=== PATIENT | male | born 1965 | race Two or more races ===

== ENCOUNTER 2018-11-08 14:18 | Day surgery (SDC) | payer OTHER ==
[2018-11-08] MEDS ORDERED: LIDOCAINE 1% 2 ML INJ ID PRN (14:36)
[2018-11-08] MEDS ORDERED: LR 1,000 ML IV ONE (14:36)
--- NOTE | 2018-11-08 15:42 | PDANEPAE ---
ANE History of Present Illness ERCP for common duct stone ANE Past Medical History - Cardiovascular History Hx Hypertension: No Hx Arrhythmias: No Hx Chest Pain: No Hx Coronary Artery / Peripheral Vascular Disease: No Hx CHF / Valvular Disease: No Hx Palpitations: No - Pulmonary History Hx COPD: No Hx Asthma/Reactive Airway Disease: No Hx Recent Upper Respiratory Infection: No Hx Oxygen in Use at Home: No Hx Sleep Apnea: No Sleep Apnea Screening Result - Last Documented: Negative Pulmonary History Comment: BRONCHITIS X1 IN PAST - Neurologic History Hx Cerebrovascular Accident: No Hx Seizures: No Hx Dementia: No Neurologic History Comment: MIGRAINES IN PAST - Endocrine History Hx Diabetes: Yes Endocrine History Comment: GRAVES DISEASE IN REMISSION X 5 YRS - Renal History Hx Renal Disorders: No - Liver History Hx Hepatic Disorders: No Hepatic History Comment: GALL BLADDER STONES - Neurological & Psychiatric Hx Hx Neurological and Psychiatric Disorders: No - Cancer History Hx Cancer: No - Congenital Disorder History Hx Congenital Disorders: No - GI History Hx Gastrointestinal Disorders: No Gastrointestinal History Comment: IBS - Other Health History Other Health History: NEG - Chronic Pain History Chronic Pain: Yes (BACK PAIN, SHOULDER R) - Surgical History Prior Surgeries: HERNIA REPAIR ANE Review of Systems Review of Systems: - Exercise capacity METS (RN): 6 METS ANE Patient History - Allergies Allergies/Adverse Reactions: No Known Allergies Allergy (Unverified 11/08/18 14:59) - Home Medications Home medications: home medication list seen and reviewed Home Medications: NK [No Known Home Meds] 11/05/18 [Last Taken Unknown] - NPO status NPO Since - Liquids (Date): 11/08/18 NPO Since - Liquids (Time): 06:00 (H2O) NPO Since - Solids (Date): 11/07/18 NPO Since - Solids (Time): 00:59 - Anes Hx Anes Hx: no prior problems - Smoking Hx Smoking Status: Never smoked - Alcohol Use Alcohol Use: None - Family Anes Hx Family Anes Hx: none Family Hx Anesthesia Complications: NEG ANE Labs/Vital Signs - Vital Signs Blood Pressure: 116/89 Heart Rate: 67 Respiratory Rate: 18 O2 Sat (%): 94 Height: 167.64 cm Weight: 69.4 kg ANE Physical Exam - Airway Neck exam: FROM Mallampati Score: Class 1 - Pulmonary Pulmonary: no respiratory distress - Cardiovascular Cardiovascular: regular rate and rhythym - ASA Status ASA Status: I ANE Anesthesia Plan Anesthesia Plan: general endotracheal anesthesia
[2018-11-08] MEDS ORDERED: fentaNYL 100 MCG/2 ML INJ ONE (16:03)
[2018-11-08] MEDS ORDERED: PROPOFOL/EMULSION 500 MG/50 ML BOTTLE IV ONE (16:03)
[2018-11-08] MEDS ORDERED: IOTHALAMATE MEG (CONRAY) 50 ML VIAL IV ONE (16:03)
[2018-11-08] MEDS ORDERED: REMIFENTANIL HCL 1 MG VIAL ONE (16:03)
[2018-11-08] MEDS ORDERED: INDOMETHACIN 50 MG SUPP PR PRN (16:05)
[2018-11-08] MEDS ORDERED: INDOMETHACIN 50 MG SUPP PR ONE ×2 (16:05→16:08)
--- NOTE | 2018-11-08 16:05 | PDGENHP ---
History & Physical Chief Complaint: choledocholithiasis History of Present Illness: 53 year old male presents for evaluation of choledocholithiasis Pertinent Past, Social, Family History: PMHx: Graves, migraines, bronchitis Relevant Physical Exam: HEENT: anicteric. CV; RRR +s1s2. Lungs: CTAB. Abd: soft, nt, + bs Cardiorespiratory Assessment: ASA 1
[2018-11-08] MEDS ORDERED: ePHEDrine SULFATE 25 MG/5 ML SYR ONE (16:12)
[2018-11-08] MEDS ORDERED: NS 500 ML IV SCH (16:15)
[2018-11-08] MEDS ORDERED: ONDANSETRON 4 MG/2 ML VIAL ONE (16:18)
[2018-11-08] MEDS ORDERED: DEXAMETHASONE 4 MG/ML VIAL ONE ×2 (16:18)
[2018-11-08] MEDS ORDERED: oxyCODONE IR 5 MG TAB PO PRN (16:29)
[2018-11-08] MEDS ORDERED: DEXAMETHASONE 4 MG/ML VIAL IVP PRN (16:29)
[2018-11-08] MEDS ORDERED: LABETALOL HCL 5 MG/ML 20 ML MDV IVP PRN (16:29)
[2018-11-08] MEDS ORDERED: ONDANSETRON 4 MG/2 ML VIAL IVP PRN (16:29)
[2018-11-08] MEDS ORDERED: NALOXONE HCL 0.4 MG/ML INJ IVP PRN (16:29)
[2018-11-08] MEDS ORDERED: fentaNYL 100 MCG/2 ML INJ IVP PRN (16:29)
[2018-11-08] MEDS ORDERED: ALBUTEROL 3 ML DEYVIAL IH PRN (16:29)
[2018-11-08] MEDS ORDERED: PROMETHAZINE HCL 25 MG/ML INJ IVP PRN (16:29)
[2018-11-08] MEDS ORDERED: LR 500 ML IV PRN (16:29)
[2018-11-08] MEDS ORDERED: PHENYLEPHRINE HCL 100 MCG/ML SYR IVP PRN (16:29)
--- NOTE | 2018-11-08 17:15 | GIREPORT ---
[facility] Surgical Services - Endoscopy Department Patient Name: Jono Dominguez Procedure Date: 11/08/2018 4:04 PM Patient Type: Outpatient Attending MD/ ER Physician: Rigoberto Hernandez MD Procedure: ERCP Indications: Bile duct stone(s) Patient Profile: 53 year old male presents for biliary decompression. Providers: Rigoberto Hernandez MD Medicines: Indomethacin 100 mg HI, General Anesthesia Complications: No immediate complications. Estimated blood loss: Minimal. Description of Procedure: After obtaining informed consent, the scope was passed under direct vis ion. Throughout the procedure, the patient's blood pressure, pulse, and oxyg en saturations were monitored continuously. The Duodenalscope was introduc ed through the mouth, and advanced to the duodenum and used to inject cont rast into the bile duct. The ERCP was accomplished without difficulty. The patient tolerated the procedure well. Findings: The regional coordinator film was normal. The esophagus was successfully intubated und er direct vision. The scope was advanced to a normal major papilla in the descending duodenum without detailed examination of the pharynx, larynx and associated structures, and upper GI tract. The upper GI tract was gross ly normal. A wire was passed into the biliary tree. The short-nosed tracti on sphincterotome was passed over the guidewire and the bile duct was then deeply cannulated. Contrast was injected. I personally interpreted the bile duct images. Ductal flow of contrast was adequate. Image quality was adequate. Contrast extended to the entire biliary tree. The main bile d uct contained four stones, the largest of which was 15 mm in diameter. The main bile duct was diffusely dilated. The largest diameter was 15 mm. A 10 m m biliary sphincterotomy was made with a traction (standard) sphincteroto me using pure cut current. The sphincterotomy oozed blood. The biliary rayray e was swept with a 15 mm balloon starting at the bifurcation. Four stones wer e removed. No stones remained. Estimated Blood Loss: Estimated blood loss was minimal. Estimated blood loss was minimal. Post Op Diagnosis: - The entire main bile duct was dilated. - Choledocholithiasis was found. Complete removal was accomplished by biliary sphincterotomy and balloon extraction. - A biliary sphincterotomy was performed. - The biliary tree was swept. Recommendation: - Discharge patient to home (with escort). - Clear liquid diet. - Continue present medications. - Needs cholecystectomy. - Thank you for allowing me to participate in the care of your patient. Attending Participation: I personally performed the entire procedure. Rigoberto Hernandez MD Rigoberto Hernandez MD 11/08/2018 5:15:01 PM This report has been signed electronicallyRigoberto Hernandez MD Number of Addenda: 0 Note Initiated On: 11/08/2018 4:04 PM [email or web address]
[2018-11-08 18:36] VITALS: BP 139/94
--- NOTE | 2018-11-08 18:38 | POSTANESTH ---
Post Anesthetic Evaluation Cardiovascular Status: Normal, Stable Respiratory Status: Normal, Stable Level of Consciousness/Mental Status: Can Participate in Eval Pain Control: Adequate, Prn Tx Ordered Nausea/Vomiting Control: Adequate, Prn Tx Ordered Complications Possibly Related to Anesthesia: None Noted
== END 2018-11-08 18:35 | disposition home or self-care (01) ==
LOC: FSGY 14:18
PROVIDERS: ATTEND Internal Medicine Gastroenterology
PROC: 0FC98ZZ Extirpation of Matter from Common Bile Duct, Via Natural or Artificial Opening Endoscopic (ICD-10-PCS; principal; 2018-11-08 16:00)
PROC: BF111ZZ Fluoroscopy of Biliary and Pancreatic Ducts using Low Osmolar Contrast (ICD-10-PCS; principal; 2018-11-08 16:00)
DX: K80.50 Calculus of bile duct without cholangitis or cholecystitis without obstruction (principal); E05.00 Thyrotoxicosis with diffuse goiter without thyrotoxic crisis or storm
CPT/HCPCS: J1100; J2405; J2704; J3010; Q9961